=== PATIENT | female | born 1965 | race Caucasian/White ===

== ENCOUNTER 2018-10-26 22:45 | Emergency (ER) | payer MEDICARE ==
[~2018-10-26] VITALS: Ht 162.6 cm; Wt 65.4 kg
[2018-10-26 23:01] VITALS: Ht 162.6 cm; Wt 65.4 kg
[2018-10-26] MEDS ORDERED: ONDANSETRON (ODT) 4 MG TAB ODT STA (23:33)
[2018-10-26] MEDS ORDERED: morphine 2 MG INJ IM STA (23:33)
[2018-10-27] MEDS ORDERED: DIAZEPAM 5 MG TAB PO ONE
--- NOTE | 2018-10-27 00:08 | ERD ---
ER Documentation Chief Complaint Chief Complaint C/O NECK, BACK AND LEG PAIN HPI Patient is a 53-year-old female who states she fell yesterday secondary to having bad knees. She uses a walker to ambulate which is her baseline. Is complaining of pain in her lower back, neck, and right knee. No head injury. No blood thinners. No vomiting. ROS All systems reviewed and are negative except as per history of present illness. Medications Home Meds Active Scripts Hydrocodone/Acetaminophen ([place] 5-325 Tablet) 1 Each Tablet, 1 TAB PO Q6H PRN for PAIN, #15 TAB Prov:PRAVIN ELY PA-C 10/27/18 Ibuprofen* (Motrin*) 800 Mg Tab, 800 MG PO Q6, #30 TAB Prov:PRAVIN ELY PA-C 10/27/18 Allergies Allergies: Coded Allergies: No Known Allergy (Unverified , 10/26/18) PMhx/Soc History of Surgery: Yes (hernia) Hx Miscellaneous Medical Probl: Yes (anxiety) Hx Alcohol Use: No Hx Substance Use: No Hx Tobacco Use: No Smoking Status: Current every day smoker FmHx Family History: No diabetes Physical Exam Vitals Vital Signs Date Temp Pulse Resp B/P (MAP) Pulse Ox O2 O2 Flow FiO2 Time Delivery Rate 10/26/18 98.1 82 18 145/89 98 23:01 (107) Physical Exam Const: No acute distress Head: Atraumatic Eyes: Normal Conjunctiva ENT: Normal External Ears, Nose and Mouth. Neck: Full range of motion. No meningismus. No midline tenderness, no step-offs Resp: Clear to auscultation bilaterally Cardio: Regular rate and rhythm, no murmurs Back Exam: Compartments: Soft Motor: Normal flexion and extension of bilateral hip/knee/ankle/foot Sensation: Intact to light touch throughout Bones: No midline TTP Lower Extremity -right: Compartments: Soft Motor: Full active range of motion hip/knee/ Sensation: Intact to light touch Bones: Nontender pelvis/knee/proximal tibia/ Joints: No effusion or laxity Pulses/Perfusion: 2+ DP, Capillary refill < 2 seconds Results 24 hrs Current Medications Medications Dose Sig/Chelsey Start Time Status Last (Trade) Ordered Route PRN Stop Time Admin Dose Reason Admin Morphine 2 mg ONCE STAT 10/26/18 DC 10/26/18 Sulfate IM 23:33 10/26/18 23:44 (morphine) 23:35 Ondansetron 4 mg ONCE STAT 10/26/18 DC 10/26/18 HCl (Zofran ODT 23:33 10/26/18 23:43 Odt) 23:35 Diazepam 5 mg ONCE ONCE 10/27/18 DC 10/26/18 (Valium) PO 00:00 10/27/18 23:43 00:01 Procedures/MDM 53-year-old female who has back pain neck pain and knee pain after mechanical fall yesterday. X-rays ordered. X-rays reveal tibial plateau fracture. The other x-rays show no acute fracture. Patient already has a walker. She was placed in a knee immobilizer and given outpatient orthopedic follow-up as well as prescription for pain medication. Reviewed the case with Dr. Nichols who agrees wtih plan. Patient counseled regarding my diagnostic impression and care plan. Prior to discharge all questions answered. Pt agrees with treatment plan and understands strict return precautions. Pt is instructed to follow up with primary care provider within 24-48 hours. Precautionary instructions provided including instructions to return to the ER if not improving or for any worsening or changing symptoms or concerns. Departure Diagnosis: Primary Impression: Cervical strain Additional Impressions: Back pain Tibial plateau fracture Condition: Stable PRAVIN ELY PA-C Oct 27, 2018 00:08
[2018-10-27] MEDS ORDERED: IBUP800T48 PO (00:59)
[2018-10-27] MEDS ORDERED: HYDR-4011 PO (01:04)
[2018-10-27 01:34] VITALS: BP 139/79; PULSE 102; RESP 18
[2018-10-27] MEDS ORDERED: LORA1TAB PO (10:41)
[2018-10-27] MEDS ORDERED: DIVA125C2 PO (10:42)
[2018-10-27] MEDS ORDERED: GABA300C16 PO (10:42)
[2018-10-27] MEDS ORDERED: ZOLP10TA5 PO (10:42)
[2018-10-27] MEDS ORDERED: LURA20TA PO (10:43)
== END 2018-10-27 01:30 | disposition home or self-care (01) ==
LOC: FTE 22:45
DX: S16.1XXA Strain of muscle, fascia and tendon at neck level, initial encounter (principal); F17.210 Nicotine dependence, cigarettes, uncomplicated; S39.92XA Unspecified injury of lower back, initial encounter; S82.141A Displaced bicondylar fracture of right tibia, initial encounter for closed fracture; W18.39XA Other fall on same level, initial encounter; Y92.9 Unspecified place or not applicable
CPT/HCPCS: 29505; 72040; 72100; 73562; J2270; 96372

== ENCOUNTER 2018-10-27 02:13 | Emergency (ER) | payer MEDICARE ==
[~2018-10-27] VITALS: Ht 162.6 cm; Wt 65.7 kg
[~2018-10-27 02:13] MED LIST: HYDR-4011 PO; IBUP800T48 PO
[2018-10-27 02:15] VITALS: Ht 162.6 cm; Wt 65.7 kg
--- NOTE | 2018-10-27 05:11 | PSY ---
Date/Time of Note Date/Time of Note DATE: 10/27/18 TIME: 05:04 Psychiatric Subjective Eval Consent Pt consented to telemedicine: Yes Subjective Evaluation Patient location: emergency Chief Complaint: STATES SHE IS SUICIDAL AND THE PAIN IN HER LEG, NECK AND BACK INCREASED Medical history Problems Medical Problems: (1) Back pain Status: Acute (2) Cervical strain Status: Acute (3) Knee pain Status: Acute (4) Tibial plateau fracture Status: Acute Allergies: Coded Allergies: No Known Allergy (Unverified , 10/26/18) Assessment and Plan Recommendation/Plan Discharge Disposition: Psychiatric inpatient Legal Status: Voluntary Assessment Additional comments: IDENTIFYING INFORMATION: 53 year old Female patient who is currently located at the hospital and for whom psychiatric consultation was requested. SOURCES OF INFORMATION: The patient who appears to be somewhat reliable and the medical records; the nursing staff. CHIEF COMPLAINT: "I need my operation". HISTORY OF PRESENT ILLNESS: The patient was interviewed via telemedicine in the presence of and under the supervision of nursing staff of the hospital. The consent to conducting this interview via telemedicine was obtained by the nursing staff at the hospital. RN Julio Cesar reports that the patient presented with knee pain and a tibial fracture, she stated that she has suicidal thoughts with plan to grab a knife due to the extreme pain. The patient reports having a lot of pain, wants to stab herself with a knife to the chest. Admits to persistent depression, anhedonia, insomnia, AH repeating what she is thinking. The patient denies having low appetite, delusions. The patient denies using alcohol heavily or regularly. The patient denies using any other substances. In terms of past psychiatric history, the patient reports having a history of past psychiatric hospitalizations. The patient reports having a history of no past suicide attempts. PAST MEDICAL HISTORY: BPAD, tibia fracture. CURRENT MEDICATIONS: latuda 40 mg po bid, ativan 2 mg po tid prn anxiety, ambien 10 mg po qhs prn insomnia, morphine, naproxen, depakote 500 mg po qhs, soma prn- noncompliant with meds since 3 days ago. ALLERGIES TO MEDICATIONS: NKDA. LABORATORY TESTS: pending. SOCIAL HISTORY: single, 1 grown son, on disability. REVIEW OF SYSTEMS: Constitutional (e.g., fever, weight loss): negative; Eyes, Ears, Nose, Mouth, Throat: negative; Cardiovascular: negative; Respiratory: negative; Gastrointestinal: negative; Genitourinary: negative; Musculoskeletal: negative; Integumentary (skin and/or breast): negative; Neurological: negative; Psychiatric: as per HPI; Endocrine: negative; Hematologic/Lymphatic: negative; Allergic/Immunologic: negative. MENTAL STATUS EXAMINATION: General Appearance and Behavior: restless, appears to be responding to internal stimuli, cooperative with most of the interview, pleasant with the current interviewer, makes poor eye contact, poorly groomed, increased psychomotor activity, no abnormal movements noted. Speech: Normal rate, regular rhythm, normal latency, normal volume. Flow of thought: tangential, illogical, not goal-directed. Content of thought: + auditory hallucinations, - paranoid delusions, no visual hallucinations, + suicidal ideation; no homicidal ideation. Mood: "OK". Affect: agitated, decreased range of reactivity. Attention: normal based on the interview. Insight: poor. Judgment: poor. Memory: normal based on the interview. Sensorium: alert and oriented to person, date, place. ASSESSMENT: The patient's presentation and history are consistent with the diagnosis of unspecified psychotic disorder. The patient presents with depressive and psychotic symptoms in the context of medication noncompliance, psychosocial stressors. PLAN: - Medication management: Would start latuda 40 mg po qday, Ativan 1 mg by mouth 3 times a day as needed for anxiety, Depakote 500 mg by mouth at bedtime. Would start haloperidol 5 mg IM PRN severe agitation q4 hours. Would start diphenhydramine 50 mg IM PRN severe agitation q4 hours. Would start lorazepam 2 mg IM PRN severe agitation q4 hours Will defer to the inpatient psychiatry team for other medication changes. - Labs: Please check CBC, CMP, Alcohol level, UDS, Depakote level. - Psychotherapy: Provided supportive psychotherapy and psychoeducation. - Disposition: Would recommend voluntary admission to the inpatient psychiatric unit as the patient would benefit from such an intervention so long as the patient has been cleared medically for admission to psychiatry. The patient is agreeable to being hospitalized in the inpatient psychiatric unit at this time. Would place on suicide precautions. I called the emergency room physician who is taking care of the patient to discuss about the above plan but the emergency room physician is not available at this time. I left my phone number with the hospital staff requesting a callback so that the emergency room physician can reach me when they become available. BAYLEE VANESSA MD Oct 27, 2018 05:11
--- NOTE | 2018-10-27 05:15 | ERD ---
ER Documentation Chief Complaint Chief Complaint STATES SHE IS SUICIDAL AND THE PAIN IN HER LEG, NECK AND BACK INCREASED HPI Is officially female states that she is suicidal. She was seen earlier today and diagnosed tibial plateau fracture and discharged home. Patient has broken. She denies any plan. She does have any other current complaints. ROS All systems reviewed and are negative except as per history of present illness. Medications Home Meds Active Scripts Hydrocodone/Acetaminophen ([place] 5-325 Tablet) 1 Each Tablet, 1 TAB PO Q6H PRN for PAIN, #15 TAB Prov:PRAVIN ELY PA-C 10/27/18 Ibuprofen* (Motrin*) 800 Mg Tab, 800 MG PO Q6, #30 TAB Prov:PRAVIN ELY PA-C 10/27/18 Allergies Allergies: Coded Allergies: No Known Allergy (Unverified , 10/26/18) PMhx/Soc History of Surgery: Yes (hernia) Hx Miscellaneous Medical Probl: Yes (anxiety) Hx Alcohol Use: No Hx Substance Use: No Hx Tobacco Use: No Smoking Status: Never smoker Physical Exam Vitals Vital Signs Date Temp Pulse Resp B/P (MAP) Pulse Ox O2 O2 Flow FiO2 Time Delivery Rate 10/27/18 97.5 83 18 158/80 100 02:15 (106) Physical Exam Const: No acute distress Head: Atraumatic Eyes: Normal Conjunctiva ENT: Normal External Ears, Nose and Mouth. Neck: Full range of motion. No meningismus. Resp: Clear to auscultation bilaterally Cardio: Regular rate and rhythm, no murmurs Abd: Soft, non tender, non distended. Normal bowel sounds Skin: No petechiae or rashes Back: No midline or flank tenderness Ext: No cyanosis, or edema Neur: Awake and alert Psych: Normal Mood and Affect Procedures/MDM Patient's behavioral symptoms have stabilized while in the department. Patient is medically cleared and appropriate for psychiatric evaluation and work up. No e/o neurologic, toxic, infectious, or metabolic cause. Placed on involuntary hold per telemetry psychiatry. Pending transfer at this time Departure Diagnosis: Primary Impression: Suicidal ideation Condition: MINAL Small Oct 27, 2018 05:15
[2018-10-27] MEDS ORDERED: IBUPROFEN 800 MG TAB PO ONE (09:30)
[2018-10-27] MEDS ORDERED: LORAZEPAM 1 MG TAB PO ONE (09:30)
[2018-10-27] MEDS ORDERED: LORA1TAB PO (10:41)
[2018-10-27] MEDS ORDERED: ZOLP10TA5 PO (10:42)
[2018-10-27] MEDS ORDERED: DIVA125C2 PO (10:42)
[2018-10-27] MEDS ORDERED: GABA300C16 PO (10:42)
[2018-10-27] MEDS ORDERED: LURA20TA PO (10:43)
--- NOTE | 2018-10-27 10:48 | QN ---
Documentation Comment Observation Note: Time: 4 hours Family Hx: Negative for diabetes Evaluation: Multiple exams showed improving symptoms and no evidence of clinical decompensation. Patient is pending psychiatric transfer at this time. MARILYN MENDEZ MD Oct 27, 2018 10:48
[2018-10-27 12:19] VITALS: BP 118/82; PULSE 65; RESP 18
[2018-10-27] MEDS ORDERED: DIVALPROEX (EC) 500 MG TAB PO SCH (21:00)
== END 2018-10-27 13:47 ==
LOC: E/R 02:13
DX: R45.851 Suicidal ideations (principal)
CPT/HCPCS: 36415; 80053; 80307; 81001; 85025